=== PATIENT | female | born 1980 | race American Indian/Alaskan Native ===

== ENCOUNTER 2016-08-14 09:10 | Day surgery (SDC) | payer BC ==
[2016-08-12 10:04] LABS: Basophils % (Auto) 1.4 % (0.0-1.8); Eosinophils % (Auto) 5.7 % (0.0-4.3); Hematocrit 35.9 % (30.3-42.9); Hemoglobin 11.7 gm/dl (10.1-14.3); Mean Corpuscular HGB Conc 33 % (30-34); Mean Corpuscular Hemoglobin 29 pg (28-32); Mean Corpuscular Volume 90 fl (79-97); Platelet Count 253 K/mm3 (140-440); Red Blood Count 4.02 M/mm3 (3.65-5.03); Red Cell Distribution Width 13.3 % (13.2-15.2); White Blood Count 3.9 K/mm3 (4.5-11.0)
[2016-08-12 10:21] LABS: Anion Gap 16 mmol/L; BUN/Creatinine Ratio 23.33; Blood Urea Nitrogen 14 mg/dL (7-17); Calcium 8.1 mg/dL (8.4-10.2); Carbon Dioxide 26 mmol/L (22-30); Glucose 112 mg/dL (65-100); Potassium 3.5 mmol/L (3.6-5.0); Sodium 138 mmol/L (137-145)
[~2016-08-14 09:10] MED LIST: MARCAINE 0.5% INFILTRATI ONE; NACL 0.9% IR ONE
--- NOTE | 2016-08-14 09:25 | Anesthesia Day of Surgery ---
Anesthesia Day of Surgery - Day of Surgery Patient Examined: Yes Patient H&P Reviewed: Yes Patient is NPO: Yes
--- NOTE | 2016-08-14 09:25 | Anesthesia Consultation ---
Anesthesia Consult and Med Hx Date of service: 08/14/16 - Airway Anesthetic Teeth Evaluation: Good ROM Head & Neck: Adequate Mental/Hyoid Distance: Adequate Mallampati Class: Class II Intubation Access Assessment: Probably Good - Pulmonary Exam CTA: Yes - Pre-Operative Health Status ASA Pre-Surgery Classification: ASA2 Proposed Anesthetic Plan: General - Pulmonary Hx Asthma: Yes (as a child) - Cardiovascular System Hx Hypertension: Yes (x 6 yrs) - Central Nervous System Hx Psychiatric Problems: No - Other Systems Hx Cancer: No - Additional Comments Anesthesia Medical History Comments: Recent 50 pound wt loss
[2016-08-14] MEDS ORDERED: PEPCID PO NR ×2 (09:55→10:00)
[2016-08-14] MEDS ORDERED: NORCO 5/325 PO PRN (10:00)
[2016-08-14] MEDS ORDERED: VERSED IV NR ×2 (10:00→10:36)
[2016-08-14] MEDS ORDERED: ZOFRAN IV PRN (10:00)
[2016-08-14] MEDS ORDERED: LACTATED RINGERS 1,000 ML IV SCH ×2 (10:00→12:00)
--- NOTE | 2016-08-14 10:28 | Short Stay Summary ---
Short Stay Documentation Date of service: 08/14/16 Narrative H&P: patient is a 35 year old who presents today for operative laparoscopy due to known right hydrosalpinx. Patient has been having pain intermittently since last year. - History Principal diagnosis: pelvic pain /hydrosalpinx H&P: obtained from office Past Medical History: anemia Past Surgical History: cholecystectomy Social history: - Allergies and Medications Current Medications: Allergies No Known Allergies Allergy (Verified 08/14/16 09:36) Home Medications Medication Instructions Recorded Confirmed Last Taken Type Triamter/Hctz 37.5-25 mg 1 tab PO QDAY 08/08/16 08/08/16 Unknown History [Maxzide-25] Active Medications Acetaminophen/Hydrocodone Bitart (Joffre 5/325) 2 each PO ONCE PRN PRN Reason: Pain, Moderate (4-6) Stop: 08/14/16 16:00 Famotidine (Pepcid) 20 mg PO PREOP NR Stop: 08/14/16 20:00 Last Admin: 08/14/16 09:42 Dose: 20 mg Hydromorphone HCl (Dilaudid) 0.5 mg IV Q10MIN PRN PRN Reason: Pain , Severe (7-10) Stop: 08/14/16 15:00 Lactated Ringer's (Lactated Ringers) 1,000 mls @ 125 mls/hr IV DIRECT ANDRIY Last Admin: 08/14/16 09:42 Dose: 125 mls/hr Midazolam HCl (Versed) 2 mg IV PREOP NR Stop: 08/14/16 23:59 Last Admin: 08/14/16 09:42 Dose: 2 mg Ondansetron HCl (Zofran) 4 mg IV ONCE PRN PRN Reason: Nausea And Vomiting Stop: 08/14/16 15:00 - Physical exam General appearance: no acute distress Integumentary: no rash Lungs: Clear to auscultation, Normal air movement Breasts: deferred Heart: Regular rate, Normal S1, Normal S2 Gastrointestinal: normal, normoactive bowel sounds Rectal Exam: deferred Extremities: No edema - Brief post op/procedure progress note Date of procedure: 08/14/16 Pre-op diagnosis: pelvic pain and hydrosalpinx Post-op diagnosis: same Procedure: Laparoscopic Bilateral Salpingectomy Anesthesia: GETA Findings: Right sided hydrosalpinx, Foreign body (clip) on left tube. Otherwise normal uterus and ovaries Surgeon: KILLIAN MCWILLIAMS Estimated blood loss: 50-100ml Pathology: list (Right and left fallopian tubes) Specimen disposition: to lab Condition: stable - Hospital course Hospital course: Unremarkable - Disposition Condition at discharge: Good Disposition: DISCHARGED TO HOME OR SELFCARE Short Stay Discharge Plan Activity: no restrictions Weight Bearing Status: Weight Bear as Tolerated Diet: regular Wound: keep clean and dry Follow up with: PRIMARY CARE,MD [Primary Care Provider] - 14 Days Prescriptions: Fluconazole [Diflucan TAB] 150 mg PO ONCE #2 tablet Ibuprofen [Motrin] 800 mg PO Q8HR PRN #40 tablet PRN Reason: Pain oxyCODONE /ACETAMINOPHEN [Percocet 5/325] 2 tab PO Q6HR PRN #40 tablet PRN Reason: Pain
[2016-08-14] MEDS ORDERED: ANCEF/STERILE WATER 2 GM/20 ML 2 GM/20 ML SYRINGE IV NR (11:00)
[2016-08-14] MEDS ORDERED: MARCAINE 0.5% 30 ML INFILTRATI ONE (12:48)
[2016-08-14] MEDS ORDERED: DIPRIVAN 10 MG/ML IV ONE (12:55)
[2016-08-14] MEDS ORDERED: DILAUDID ONE (12:56)
[2016-08-14] MEDS ORDERED: XYLOCAINE MPF 2% ONE (13:00)
[2016-08-14] MEDS ORDERED: QUELICIN ONE (13:14)
[2016-08-14] MEDS ORDERED: ROBINUL ONE (13:53)
[2016-08-14] MEDS ORDERED: DECADRON ONE (13:55)
[2016-08-14] MEDS ORDERED: ZOFRAN ONE ×2 (13:55→15:16)
[2016-08-14] MEDS ORDERED: ANCEF/STERILE WATER 2 GM/20 ML IV NR (14:00)
[2016-08-14] MEDS: DILAUDID IV PRN ×2 (14:50→15:10)
[2016-08-14] MEDS ORDERED: TORADOL ONE (14:52)
[2016-08-14] MEDS ORDERED: TORADOL IV ONE (14:55)
--- NOTE | 2016-08-14 15:10 | Post Anesthesia Evaluation ---
- Post Anesthesia Evaluation Patient Participated: Yes Airway Patent: Yes Stable Respiratory Function: Yes Nausea/Vomiting: No Temp > 96.8F: Yes Pain Manageable: Yes Adequeate Hydration: Yes Anesthesia Complications: No Block Receding Appropriately: Not Applicable Patient on Ventilator: No
[2016-08-14] MEDS ORDERED: ZOFRAN IV ONE (15:20)
[2016-08-14 17:40] VITALS: BP 126/89
--- NOTE | 2016-08-14 20:27 | Operative Report ---
PREOPERATIVE DIAGNOSES: 1. Pelvic pain. 2. Hydrosalpinx. POSTOPERATIVE DIAGNOSES: 1. Pelvic pain. 2. Hydrosalpinx with foreign body on the left tube consistent with Filshie clip. PROCEDURE: Bilateral salpingectomy, laparoscopic approach. SURGEON: Carol Chung MD ANESTHESIA: General. ESTIMATED BLOOD LOSS: Minimal. IV FLUIDS: 700 mL. SPECIMENS: Right and left fallopian tube. Left fallopian tube with a metal clip attached. COMPLICATIONS: None. DESCRIPTION OF PROCEDURE: The patient was taken to the OR with IV running in place. She was properly identified as herself. She was then given anesthesia without difficulty and placed in dorsal lithotomy position. She was then prepped and draped in normal sterile fashion. Attention turned to the patient's vagina where a bivalve speculum was placed into the vagina. The bladder was then drained approximately 200 mL of clear yellow urine. Following this, the speculum was removed and the surgeon's gloves were changed. A small incision was made in the umbilicus using the scalpel. Through this incision, a 5 mm trocar was placed. Following this, initial survey of the abdomen revealed a right hydrosalpinx as well as the aforementioned clip on the left side. Using the LigaSure tubes were taken down along the broad ligament on the underside and then cauterized at the cornua. This was done bilaterally. Each tube was pulled out through the smaller left lower quadrant port and at this point, there was excellent hemostasis noted. The patient tolerated the procedure well and was taken to recovery in stable condition. JOB# [id number] VINCE/JASS
== END 2016-08-14 17:38 | disposition home or self-care (01) ==
LOC: OR 09:10
PROVIDERS: ATTEND Obstetrics & Gynecology
DX: N70.11 Chronic salpingitis (principal); J45.909 Unspecified asthma, uncomplicated; I10 Essential (primary) hypertension; D64.9 Anemia, unspecified; Z90.49 Acquired absence of other specified parts of digestive tract; Z79.899 Other long term (current) drug therapy
CPT/HCPCS: 36415; 58661; 80048; 84703; 85025; 88302; A4217; J0330; J0690; J1100; J1170; J1885; J2250; J2405; J2704; J7120

== ENCOUNTER 2019-02-24 06:13 | Observation (INO) | payer BC ==
[2019-02-22 11:46] LABS: Basophils % (Auto) 1.1 % (0.0-1.8); Eosinophils # (Auto) 0.1 K/mm3 (0.0-0.4); Eosinophils % (Auto) 3.7 % (0.0-4.3); Hematocrit 35.5 % (30.3-42.9); Hemoglobin 11.9 gm/dl (10.1-14.3); Lymphocytes # (Auto) 1.2 K/mm3 (1.2-5.4); Lymphocytes % (Auto) 30.5 % (13.4-35.0); Mean Corpuscular HGB Conc 34 % (30-34); Mean Corpuscular Volume 90 fl (79-97); Monocytes # (Auto) 0.4 K/mm3 (0.0-0.8); Monocytes % (Auto) 9.7 % (0.0-7.3); Platelet Count 267 K/mm3 (140-440); Red Blood Count 3.93 M/mm3 (3.65-5.03); Red Cell Distribution Width 14.3 % (13.2-15.2)
--- NOTE | 2019-02-22 11:49 | Anesthesia Consultation ---
Anesthesia Consult and Med Hx Date of service: 02/24/19 - Airway Anesthetic Teeth Evaluation: Caps ROM Head & Neck: Adequate Mental/Hyoid Distance: Adequate Mallampati Class: Class II Intubation Access Assessment: Good - Pre-Operative Health Status ASA Pre-Surgery Classification: ASA2 Proposed Anesthetic Plan: General Nerve Block: TAP - Pulmonary Hx Asthma: Yes (as a child) - Cardiovascular System Hx Hypertension: Yes (2010) - Central Nervous System Hx Psychiatric Problems: No - Hematic Hx Sickle Cell Disease: No - Other Systems Hx Cancer: No Hx Obesity: Yes
[2019-02-22 12:03] LABS: BUN/Creatinine Ratio 13; Blood Urea Nitrogen 8 mg/dL (7-17); Calcium 8.7 mg/dL (8.4-10.2); Hemolysis Index 12
[~2019-02-24 06:13] MED LIST changes: +CELECOXIB 200 MG CAP PO NR; +GABAPENTIN 300 MG CAP PO NR; +LACTATED RINGERS 1,000 ML IV SCH; -MARCAINE 0.5% INFILTRATI ONE; +MIDAZOLAM 2 MG/2 ML INJ IV NR; -NACL 0.9% IR ONE; +fentaNYL 100 MCG/2 ML INJ IV PRN
--- NOTE | 2019-02-24 07:04 | History and Physical Report ---
History of Present Illness Date of examination: 02/24/19 Date of admission: 02/24/2019 Chief complaint: DysFunctional uterine bleeding History of present illness: 38-year-old with a history of dysfunctional uterine bleeding. The patient also reports significant dysmenorrhea with her menses. Patient has attempted medical management which was unsuccessful. She has elected to undergo definitive surgical management. Past History Past Medical History: hypertension Past Surgical History: cholecystectomy, other (laparoscopic salpingectomy; tubal ligation) Social history: - Obstetrical History : 2 Para: 2 Hx # Term Pregnancies: 2 Number of Pregnancies: 0 Spontaneous Abortions: 0 Induced : 0 Number of Living Children: 2 Medications and Allergies Allergies Allergy/AdvReac Type Severity Reaction Status Date / Time No Known Allergies Allergy Verified 02/15/19 16:27 Home Medications Medication Instructions Recorded Confirmed Last Taken Type Triamter/Hctz 37.5-25 mg 1 tab PO QDAY 08/08/16 02/15/19 08/14/16 09:00 History [Maxzide-25] Diethylpropion HCl 25 mg PO TID 02/15/19 02/15/19 Unknown History Phentermine HCl [Adipex-P] 37.5 mg PO QAM 02/15/19 02/15/19 Unknown History Active Meds: Active Medications Celecoxib (Celebrex) 200 mg PO PREOP NR Stop: 02/24/19 23:00 Fentanyl (Sublimaze) 100 mcg IV ONCE PRN PRN Reason: sedation for nerve block Gabapentin (Gabapentin) 300 mg PO PREOP NR Stop: 02/24/19 23:00 Lactated Ringer's (Lactated Ringers) 1,000 mls @ 100 mls/hr IV DIRECT ANDRIY Midazolam HCl (Versed) 2 mg IV PREOP NR Stop: 02/24/19 23:00 Review of Systems All systems: negative Genitourinary: vaginal bleeding, pelvic pain - Vital Signs Vital signs: Vital Signs Temp Pulse Resp BP Pulse Ox 97.8 F 78 18 125/85 100 02/22/19 11:10 02/22/19 11:10 02/22/19 11:10 02/22/19 11:10 02/22/19 11:10 Temp Pulse Resp BP Pulse Ox 97.8 F 78 18 125/85 100 02/22/19 11:10 02/22/19 11:10 02/22/19 11:10 02/22/19 11:10 02/22/19 11:10 - Physical Exam Breasts: Positive: deferred Cardiovascular: Regular rate Lungs: Positive: Clear to auscultation Abdomen: Positive: normal appearance Results Result Diagrams: 02/22/19 11:20 02/22/19 11:20 All other labs normal. Assessment and Plan - Patient Problems (1) Dysfunctional uterine bleeding Current Visit: Yes Status: Acute (2) Dysmenorrhea Current Visit: Yes Status: Acute Plan to address problem: Will proceed with a robotic hysterectomy
[2019-02-24] MEDS ORDERED: PROPOFOL 200 MG/20 ML VIAL IV ONE (07:12)
[2019-02-24] MEDS ORDERED: HYDROmorphone 1 MG/1 ML INJ ONE (07:12)
[2019-02-24] MEDS ORDERED: dexAMETHasone 4 MG/ML VIAL ONE (07:14)
[2019-02-24] MEDS ORDERED: BUPIVACAINE-EPINEPHRINE/PF 0.25%-1:200,000 (30 ML) VIAL INFILTRATI ONE (07:14)
[2019-02-24] MEDS ORDERED: LIDOCAINE MPF (2%) 20 MG/1 ML VIAL 5 ML ONE (07:19)
[2019-02-24] MEDS ORDERED: ROCURONIUM 50 MG/5 ML INJ IV ONE (07:19)
[2019-02-24] MEDS ORDERED: HYDROmorphone 1 MG/1 ML INJ IV PRN (07:30)
--- NOTE | 2019-02-24 07:30 | Anesthesia Day of Surgery ---
Anesthesia Day of Surgery - Day of Surgery Patient Examined: Yes Patient H&P Reviewed: Yes Patient is NPO: Yes
[2019-02-24] MEDS ORDERED: NEOMY 40 MG/POLYMYXIN B 200,000 UNITS/ML (GU) AMPULE IR ONE ×2 (07:35→08:38)
[2019-02-24] MEDS ORDERED: ceFAZolin/Water 2 GM/20 ML 2 GM/20 ML SYRINGE IV NR (08:00)
[2019-02-24] MEDS ORDERED: SODIUM CHLORIDE 0.9% IRR 1,500 ML BOTTLE IR ONE (08:39)
[2019-02-24] MEDS ORDERED: SODIUM CHLORIDE 0.9% IRRIG SOLN 2000 ML IR ONE (08:39)
[2019-02-24] MEDS ORDERED: NEOSTIGMINE 10MG/10 ML INJ MDV ONE (09:04)
[2019-02-24] MEDS ORDERED: GLYCOPYRROLATE 0.4 MG/2 ML INJ ONE (09:04)
--- NOTE | 2019-02-24 09:04 | Operative Report ---
Operative Report Operative Report: Date of surgery: February 24, 2019 Preoperative diagnoses: Dysfunctional uterine bleeding; dysmenorrhea Postoperative diagnoses: Same As above Procedure: Robotic hysterectomy and bilateral salpingo-oophorectomy Surgeon: Dara Mccallum M.D. Labor Trainer: Christie Mckenna Anesthesia: Gen. endotracheal anesthesia Estimated blood loss: 50 mL Pathology: Normal uterus, small right ovarian cyst; surgically absent fallopian tubes Indication: 38-year-old with a history of dysfunctional uterine bleeding and dysmenorrhea. The patient until medical management and elected to undergo definitive surgical management. Procedure: The patient was taken to the operating room and given general endotracheal anesthesia without complication. She is prepped and draped in a normal sterile fashion. A bivalve speculum was placed in the patient's vagina and a single- tooth tenaculum placed on the anterior lip of the cervix. The uterus was sounded with the uterine sound. A [employer] uterine manipulator was placed in the bivalve speculum was then removed. Attention was then turned to the patient's abdomen where a 12 millimeter supra umbilical skin incision was then made. A Veress needle was placed and peritoneal entry was verified water-filled syringe. Insufflation of the peritoneal cavity was performed with CO2 gas. The 12 mm trocar was then placed under direct visualization. An additional 8 mm trocar was placed on the patient's left and right lateral side just opposite of the supraumbilical trocar. An additional 5 mm right lateral trocar was then placed as the accessory port. The Juan A Chavez device was used to close the fascia of the 12 mm incision. The patient was then placed in steep Trendelenburg. The da Jade robot was then engaged. A fenestrated forcep was placed in arm 2 and a vessel sealer was placed in arm 1. The surgeon then transferred to the surgical console. General survey revealed a normal uterus, 1-2 cm right ovarian cyst, evidence of a prior partial salpingectomy, an adherent Filshie clip that was removed The infundibulopelvic ligament was then isolated on the right. The vessel sealer was used to coagulate the ligament which was then transected. The tube and ovary were transected from the supply. The round ligament was then coagulated and transected also. The vesicouterine peritoneum was then entered from the patient's right side. The uterine vessels were then coagulated with the vessel sealer. The vessels were then transected . Attention was then turned to the patient's left side where the infundibulopelvic ligament and mesosalpinx were again isolated coagulated and transected. The vesical peritoneum was then entered from the left and joined in the midline. Peritoneum was reflected off of the lower uterine segment. Uterine vessels were then coagulated and then transected. The blood supply to the uterus was adequately contained, a posterior colpotomy was made. The V care ring was visualized. Posterior colpotomy was created with the monopolar scissors. The incision was continued circumferentially until anterior colpotomy was made. The cervix and uterus were amputated from the vaginal cuff. The uterus was then removed along with the tubes and ovaries bilaterally through the vagina and a warm laparotomy sponge was placed and maintain the pneumoperitoneum. The vaginal cuff was then closed in a running fashion with V lock suture. Irrigation of the pelvis was performed. Hemoblast was applied to the incision. The skin was then reapproximated with 4-0 Monocryl. The tissue was sent to pathology which included the cervix, uterus, tubes and ovaries. The patient was then successfully extubated. She was then taken to the recovery room in stable condition. All sponge laps and needle counts were correct x2.
[2019-02-24] MEDS ORDERED: ONDANSETRON 4 MG/2 ML INJ ONE (09:06)
[2019-02-24] MEDS ORDERED: KETOROLAC 30 MG/1 ML INJ ONE (09:06)
[2019-02-24] MEDS ORDERED: HYDROmorphone 2 MG TAB PO PRN (09:16)
[2019-02-24] MEDS ORDERED: ONDANSETRON 4 MG/2 ML INJ IV PRN (09:16)
[2019-02-24] MEDS ORDERED: ACETAMINOPHEN 325 MG TAB PO PRN (10:00)
[2019-02-24] MEDS ORDERED: D5W/LACTATED RINGERS 1,000 ML IV SCH (10:00)
[2019-02-24] MEDS ORDERED: IBUPROFEN 800 MG TAB PO PRN (10:00)
[2019-02-24] MEDS: KETOROLAC 30 MG/1 ML INJ IV SCH ×2 (10:38→15:04)
[2019-02-24] MEDS: MORPHINE 4 MG/1 ML INJ IV PRN ×2 (12:05→20:22)
--- NOTE | 2019-02-24 14:56 | Post Anesthesia Evaluation ---
- Post Anesthesia Evaluation Patient Participated: Yes Airway Patent: Yes Stable Respiratory Function: Yes Nausea/Vomiting: No Temp > 96.8F: Yes Pain Manageable: Yes Adequeate Hydration: Yes Anesthesia Complications: No
[2019-02-24] MEDS ORDERED: ZOLPIDEM 5 MG TAB PO PRN (22:00)
[2019-02-25] MEDS: KETOROLAC 30 MG/1 ML INJ IV SCH ×2 (05:17→09:14)
[2019-02-25 06:13] LABS: Hematocrit 36.7 % (30.3-42.9); Hemoglobin 12.2 gm/dl (10.1-14.3)
[2019-02-25 07:55] VITALS: BP 106/68
[2019-02-25] MEDS: MORPHINE 4 MG/1 ML INJ IV PRN (08:04)
--- NOTE | 2019-02-25 08:29 | Progress Note ---
Assessment and Plan - Patient Problems (1) Dysfunctional uterine bleeding Current Visit: Yes Status: Acute Plan to address problem: patient doing well discharge home (2) Dysmenorrhea Current Visit: Yes Status: Acute Subjective - Subjective Date of service: 02/25/19 Interval history: Patient reports tolerating her diet. Having some shoulder pain. Patient reports: appetite normal, voiding normally, pain well controlled Objective - Vital Signs Latest vital signs: Vital Signs Temp Pulse Resp BP BP Pulse Ox 02/25/19 07:23 98.1 F 18 106/68 02/25/19 05:17 18 02/25/19 04:35 98.2 F 76 20 93/57 97 02/25/19 00:00 98.2 F 77 18 102/64 94 02/24/19 20:22 18 02/24/19 19:24 98.5 F 90 20 107/64 98 02/24/19 14:04 100 02/24/19 10:30 97.1 F L 74 18 111/75 100 02/24/19 10:00 73 13 101/62 100 02/24/19 09:45 67 14 100/61 100 02/24/19 09:30 71 13 104/65 100 02/24/19 09:25 77 14 104/66 100 02/24/19 09:20 85 15 110/68 100 02/24/19 09:19 97.3 F L 87 16 113/73 100 Intake and Output 02/24/19 02/25/19 02/25/19 22:59 06:59 14:59 Intake Total 240 120 Output Total 900 100 Balance -660 20 Intake: Oral 240 120 Output: Urine 900 100 Indwelling Catheter 900 100 Other: Total, Intake Amount 240 120 Total, Output Amount 900 100 Voiding Method Indwelling Catheter - Exam Breasts: Present: deferred Cardiovascular: Present: Regular rate Lungs: Present: Clear to auscultation Abdomen: Present: normal appearance
--- NOTE | 2019-02-25 08:31 | Discharge Summary ---
Providers - Providers Date of Admission: 02/24/19 09:16 Date of discharge: 02/25/19 Attending physician: ADALID MAST Primary care physician: VACUUM FORM OPERATOR Hospitalization Reason for admission: other (DUB) Procedure: other (robotic hysterectomy/BSO) Incision: normal Discharge diagnosis: other (DUB) Hospital course: Patient was admitted the day of surgery and underwent a robotic hysterectomy/BSO. See op note. Postop uncomplicated. Condition at discharge: Good Disposition: DC-01 TO HOME OR SELFCARE - Discharge Diagnoses (1) Dysfunctional uterine bleeding Status: Acute (2) Dysmenorrhea Status: Acute Plan - Discharge Medications Prescriptions: Docusate Sodium [Colace] 100 mg PO BID PRN #60 capsule PRN Reason: Constipation Ibuprofen [Motrin] 800 mg PO Q8HR PRN #60 tablet PRN Reason: Pain, Mild (1-3) oxyCODONE /ACETAMINOPHEN [Percocet 5/325] 1 tab PO Q6HR PRN #30 tablet PRN Reason: Pain - Provider Discharge Summary Activity: no sex for 6 weeks, no heavy lifting 4 weeks, no strenuous exercise Diet: routine Instructions: routine Additional instructions: [] Smoking cessation referral if applicable(refer to patient education folder for contact #) [] Refer to [facility]'s [facility] Booklet Call your doctor immediately for: * Fever > 100.5 * Heavy vaginal bleeding ( >1 pad per hour) * Severe persistent headache * Shortness of breath * Reddened, hot, painful area to leg or breast * Drainage or odor from incision. * Keep incision clean and dry at all times and follow doctor's instructions regarding bathing/showering schedule followup in 4 weeks - Follow up plan Forms: Work/School Excuse Out Patient
== END 2019-02-25 11:16 | disposition home or self-care (01) ==
LOC: OR 06:13 → OB 09:16
PROVIDERS: ADMIT Obstetrics & Gynecology; ATTEND Obstetrics & Gynecology
DX: N93.8 Other specified abnormal uterine and vaginal bleeding (principal); N94.6 Dysmenorrhea, unspecified; I10 Essential (primary) hypertension; Z90.49 Acquired absence of other specified parts of digestive tract; Z98.51 Tubal ligation status; Z79.899 Other long term (current) drug therapy
CPT/HCPCS: 36415; 58571; 64450; 80048; 84703; 85014; 85018; 85025; 86850; 86900; 86901; 88302; 88307; 94760; 96374; 96375; 96376; A4217; G0378; J0690; J1100; J1170; J1885; J2250; J2270; J2405; J2704; J2710; J3010; J7120; J7121; S2900